=== PATIENT | female | born 1985 | race Two or more races ===

== ENCOUNTER 2017-04-09 14:26 | Emergency (ER) | payer MEDICAID, OTHER ==
[~2017-04-09] VITALS: Ht 157.5 cm; Wt 76.8 kg
[2017-04-09 14:29] VITALS: BP 150/94
[2017-04-09] MEDS ORDERED: METHOCARBAMOL 750 MG TABLET PO ONE (15:30)
[2017-04-09] MEDS ORDERED: METHOCARBAMOL 750 MG TABLET ONE (15:30)
[2017-04-09] MEDS ORDERED: KETOROLAC 30 MG/1 ML ONE (15:30)
[2017-04-09] MEDS ORDERED: KETOROLAC 30 MG/1 ML IM ONE (15:30)
== END 2017-04-09 16:12 | disposition home or self-care (01) ==
LOC: ED 16:06
DX: S39.012A Strain of muscle, fascia and tendon of lower back, initial encounter (principal); X50.0XXA Overexertion from strenuous movement or load, initial encounter; Y93.89 Activity, other specified; Y92.89 Other specified places as the place of occurrence of the external cause; Y99.2 Volunteer activity
CPT/HCPCS: 96372; 99283; J1885

== ENCOUNTER 2019-09-05 14:15 | Emergency (ER) | payer MEDICAID, OTHER ==
[~2019-09-05] VITALS: Ht 157.5 cm; Wt 74.3 kg
[2019-09-05 14:57] LABS: BASOPHILS # (AUTO) 0.03 x10^3/uL (0-0.1); BASOPHILS % (AUTO) 0 % (0-1); EOSINOPHILS # (AUTO) 0.05 x10^3/uL (0-0.4); EOSINOPHILS % (AUTO) 1 % (1-7); LYMPHOCYTES # (AUTO) 1.75 x10^3/uL (1-3.4); LYMPHOCYTES % (AUTO) 27 % (22-44); MD NO; MEAN CORPUSCULAR HGB CONC 33.5 g/dL (32.4-35.8); MEAN CORPUSCULAR VOLUME 89.4 fL (80-100); MEAN PLATELET VOLUME 8.3 fL (7.4-10.4); MONOCYTES # (AUTO) 0.34 x10^3/uL (0.2-0.8); MONOCYTES % (AUTO) 5 % (2-9); NEUTROPHILS # (AUTO) 4.32 x10^3/uL (1.8-6.8); NEUTROPHILS % (AUTO) 67 % (42-75); PLATELET COUNT 223 x10^3/uL (130-400); RED BLOOD COUNT 4.82 x10^6/uL (3.82-5.3); RED CELL DISTRIBUTION WIDTH 13.7 % (9.6-15.2)
[2019-09-05 15:08] LABS: ALANINE AMINOTRANSFERASE 30 U/L (12-78); ALBUMIN 3.7 g/dL (3.4-5.0); ANION GAP 6 mmol/L (5-15); CALCIUM 8.3 mg/dL (8.5-10.1); CHLORIDE 108 mmol/L (98-107)
[2019-09-05 15:11] LABS: ALKALINE PHOSPHATASE 62 U/L (45-117); BILIRUBIN,TOTAL 0.6 mg/dL (0.2-1.0); CREATININE 0.71 mg/dL (0.55-1.02); TOTAL PROTEIN 7.8 g/dL (6.4-8.2)
[2019-09-05 15:19] LABS: D-DIMER 0.27 ug/mlFEU (0.00-0.52); INTERNATIONAL NORMALIZED RATIO 0.89 (0.93-1.1); PROTHROMBIN TIME 9.4 Seconds (9.6-11.5)
[2019-09-05 15:34] LABS: HCG UR SG 1.013 (1.003-1.030)
[2019-09-05 15:51] VITALS: BP 120/78
--- NOTE | 2019-09-05 15:52 | NUR ---
PT INFORMED DEBBY FORTE THAT SHE MAY BE . NOTIFIED AND HCG URINE ORDERED. PT PROVIDED URINE SAMPLE, URINE COLLECTED AND TAKEN TO LAB.
--- NOTE | 2019-09-05 16:19 | NUR ---
PT AMBULATED TO RESTROOM WITH STEADY GAIT. PT TALKING ON PHONE.
--- NOTE | 2019-09-05 16:28 | NUR ---
ALL RESULTS ARE BACK AT THIS TIME. CHART UP FOR RECHECK.
--- NOTE | 2019-09-05 16:31 | NUR ---
MD AT BEDSIDE TO UPDATE PT ON POC.
== END 2019-09-05 17:01 | disposition home or self-care (01) ==
LOC: ED 16:57
DX: O98.511 Other viral diseases complicating pregnancy, first trimester (principal); J06.9 Acute upper respiratory infection, unspecified; F17.200 Nicotine dependence, unspecified, uncomplicated; Z3A.08 8 weeks gestation of pregnancy
CPT/HCPCS: 36415; 71045; 80053; 81025; 83605; 83615; 84145; 84702; 85025; 85379; 85610; 85730; 87040; 99284